=== PATIENT | male | born 1980 | race Caucasian/White ===

== ENCOUNTER 2019-09-30 20:03 | Emergency (ER) | payer MEDICAID, OTHER ==
[~2019-09-30] VITALS: Ht 170.2 cm; Wt 78.3 kg
[~2019-09-30 20:03] MED LIST: CYCL-1 PO; DOXY-1 PO; HYDR-4383 PO; MUPI22OI TP
[2019-09-30 20:04] VITALS: BP 124/76
--- NOTE | 2019-09-30 21:59 | NUR ---
Provider, Dr. Riddle is with the patient at this time.
[2019-09-30] MEDS ORDERED: CEPH-571 PO (22:26)
[2019-09-30] MEDS ORDERED: FLUC150T PO (22:26)
== END 2019-09-30 22:33 | disposition home or self-care (01) ==
LOC: ER 20:03
DX: L03.114 Cellulitis of left upper limb (principal); L03.113 Cellulitis of right upper limb; B35.2 Tinea manuum; G89.29 Other chronic pain; F12.90 Cannabis use, unspecified, uncomplicated; Z79.899 Other long term (current) drug therapy
CPT/HCPCS: 99283

== ENCOUNTER 2019-10-07 06:52 | Emergency (ER) | payer OTHER ==
[~2019-10-07] VITALS: Ht 170.2 cm; Wt 77.3 kg
[~2019-10-07 06:52] MED LIST changes: +CEPH-571 PO
[2019-10-07 06:57] VITALS: BP 146/81
[2019-10-07] MEDS ORDERED: MUPI22OI30 TOP (08:37)
== END 2019-10-07 09:36 | disposition home or self-care (01) ==
LOC: ER 06:52
DX: L98.8 Other specified disorders of the skin and subcutaneous tissue (principal); G89.29 Other chronic pain; F12.90 Cannabis use, unspecified, uncomplicated; Z98.890 Other specified postprocedural states
CPT/HCPCS: 99283